=== PATIENT | female | born 1965 | race Caucasian/White ===

== ENCOUNTER 2018-11-10 05:45 | Observation (INO) | payer OTHER ==
--- NOTE | 2018-11-10 06:13 | EDPHYS ---
Physician Documentation [facility] Name: Rose Aiken Age: 52 yrs Sex: Female : 1965 Arrival Date: 11/10/2018 Time: 05:49 Bed 18 Private MD: ED Physician Tani Rodriguez HPI: 11/10 06:07 This 52 yrs old Female presents to ER via Ambulatory with complaints of Chest thomas Pain. 06:07 The patient or guardian reports chest pain that is located primarily in the substernal thomas area. Onset: 2 day(s) ago. The pain radiates to Associated signs and symptoms: The patient has no apparent associated signs or symptoms. The chest pain is described as a pressure. Modifying factors: The symptoms are alleviated by nothing. the symptoms are aggravated by deep breath, movement. Severity of pain: At its worst the pain was mild in the emergency department the pain is unchanged. The patient has not experienced similar symptoms in the past. 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 - Social history:: Smoking status: Patient/guardian denies using tobacco, Patient/guardian denies using alcohol, street drugs. - Ebola Screening: : Patient negative for fever greater than or equal to 101.5 degrees Fahrenheit, and additional compatible Ebola Virus Disease symptoms Patient denies exposure to infectious person Patient denies travel to an Ebola-affected area in the 21 days before illness onset. - Family history:: not pertinent. ROS: 06:07 Constitutional: Negative for fever, chills, and weight loss, Eyes: Negative for injury, thomas pain, redness, and discharge, ENT: Negative for injury, pain, and discharge, Neck: Negative for injury, pain, and swelling, Respiratory: Negative for shortness of breath, cough, wheezing, and pleuritic chest pain, Abdomen/GI: Negative for abdominal pain, nausea, vomiting, diarrhea, and constipation, Back: Negative for injury and pain, : Negative for injury, bleeding, discharge, and swelling, MS/Extremity: Negative for injury and deformity, Skin: Negative for injury, rash, and discoloration, Neuro: Negative for headache, weakness, numbness, tingling, and seizure, Psych: Negative for depression, anxiety, suicide ideation, homicidal ideation, and hallucinations, Allergy/Immunology: Negative for hives, rash, and allergies, Endocrine: Negative for neck swelling, polydipsia, polyuria, polyphagia, and marked weight changes, Hematologic/Lymphatic: Negative for swollen nodes, abnormal bleeding, and unusual bruising. 06:07 Cardiovascular: Positive for chest pain, of the back and chest. Exam: 06:07 Constitutional: This is a well developed, well nourished patient who is awake, alert, thomas and in no acute distress. Head/Face: Normocephalic, atraumatic. Eyes: Pupils equal round and reactive to light, extra-ocular motions intact. Lids and lashes normal. Conjunctiva and sclera are non-icteric and not injected. Cornea within normal limits. Periorbital areas with no swelling, redness, or edema. ENT: Nares patent. No nasal discharge, no septal abnormalities noted. Tympanic membranes are normal and external auditory canals are clear. Oropharynx with no redness, swelling, or masses, exudates, or evidence of obstruction, uvula midline. Mucous membranes moist. Neck: Trachea midline, no thyromegaly or masses palpated, and no cervical lymphadenopathy. Supple, full range of motion without nuchal rigidity, or vertebral point tenderness. No Meningismus. Chest/axilla: Normal chest wall appearance and motion. Nontender with no deformity. No lesions are appreciated. Cardiovascular: Regular rate and rhythm with a normal S1 and S2. No gallops, murmurs, or rubs. Normal PMI, no JVD. No pulse deficits. Respiratory: Lungs have equal breath sounds bilaterally, clear to auscultation and percussion. No rales, rhonchi or wheezes noted. No increased work of breathing, no retractions or nasal flaring. Abdomen/GI: Soft, non-tender, with normal bowel sounds. No distension or tympany. No guarding or rebound. No evidence of tenderness throughout. Back: No spinal tenderness. No costovertebral tenderness. Full range of motion. Skin: Warm, dry with normal turgor. Normal color with no rashes, no lesions, and no evidence of cellulitis. MS/ Extremity: Pulses equal, no cyanosis. Neurovascular intact. Full, normal range of motion. Neuro: Awake and alert, GCS 15, oriented to person, place, time, and situation. Cranial nerves II-XII grossly intact. Motor strength 5/5 in all extremities. Sensory grossly intact. Cerebellar exam normal. Normal gait. Psych: Awake, alert, with orientation to person, place and time. Behavior, mood, and affect are within normal limits. Vital Signs: 05:55 BP 149 / 99; Pulse 72; Resp 18; Temp 97.8; Pulse Ox 97% ; Weight 104.33 kg; Height 5 rr5 ft. 7 in. (170.18 cm); Pain 6/10; 06:15 BP 141 / 71; Pulse 69; Resp 17; Pulse Ox 98% on R/A; rr5 06:57 BP 129 / 61 (auto/); Pulse 77 LA; Resp 13 S; Pulse Ox 100% on R/A; rr5 07:06 BP 134 / 64; Pulse 81; Resp 17; Pulse Ox 99% on R/A; Pain 3/10; em 05:55 Body Mass Index 36.02 (104.33 kg, 170.18 cm) rr5 Alexander Coma Score: 05:55 Eye Response: spontaneous(4). Verbal Response: oriented(5). Motor Response: obeys rr5 commands(6). Total: 15. MDM: 05:50 Patient medically screened. [facility] 06:11 Data reviewed: vital signs, nurses notes, lab test result(s), EKG, radiologic studies, [facility] CT scan, plain films. 11/10 05:56 Order name: Basic Metabolic Panel; Complete Time: 08:30 mt 11/10 05:56 Order name: CBC with Diff; Complete Time: 06:46 mt 11/10 05:56 Order name: LFT's; Complete Time: 08:30 mt 11/10 05:56 Order name: Magnesium; Complete Time: 08:30 mt 11/10 05:56 Order name: NT PRO-BNP; Complete Time: 08:30 mt 11/10 05:56 Order name: PT-INR; Complete Time: 06:46 mt 11/10 05:56 Order name: Troponin (emerg Dept Use Only); Complete Time: 08:30 mt 11/10 06:07 Order name: Lipase thomas 11/10 07:10 Order name: Basic Metabolic Panel EDIA 11/10 07:10 Order name: Basic Metabolic Panel EDIA 11/10 07:10 Order name: Lipid Profile EDIA 11/10 07:10 Order name: Lipid Profile EDMS 11/10 07:11 Order name: CBC with Automated Diff EDMS 11/10 07:11 Order name: CBC with Automated Diff EDMS 11/10 05:56 Order name: XRAY Chest (1 view); Complete Time: 08:30 mt 11/10 05:56 Order name: EKG; Complete Time: 05:57 mt 11/10 06:07 Order name: CT Aorta for Dissection; Complete Time: 08:30 [facility] 11/10 07:11 Order name: Echo with Doppler EDIA 11/10 07:11 Order name: Troponin I EDIA 11/10 07:11 Order name: Troponin I; Complete Time: 08:30 EDIA 11/10 07:11 Order name: Troponin I EDIA 11/10 07:57 Order name: Lipid Profile; Complete Time: 08:30 EDMS 11/10 07:57 Order name: Lipase; Complete Time: 08:30 EDIA 11/10 05:56 Order name: Cardiac monitoring; Complete Time: 05:56 or 11/10 05:56 Order name: EKG - Nurse/Tech; Complete Time: 05:56 mt 11/10 05:56 Order name: IV Saline Lock; Complete Time: 06:01 or 11/10 05:56 Order name: Labs collected and sent; Complete Time: 06:01 or 11/10 05:56 Order name: O2 Per Protocol; Complete Time: 05:56 mt 11/10 05:56 Order name: O2 Sat Monitoring; Complete Time: 05:56 or 11/10 07:11 Order name: CONS Physician Consult EDIA 11/10 07:11 Order name: Heart Healthy EDIA 11/10 07:11 Order name: EKG Electrocardiogram EDIA 11/10 07:11 Order name: EKG Electrocardiogram EDMS Administered Medications: 06:18 Drug: Pepcid 20 mg Route: IVP; Site: right antecubital; rr5 07:04 Follow up: Response: No adverse reaction rr5 06:20 Drug: Lopressor (metoprolol TARTRATE) 50 mg Route: PO; rr5 07:03 Follow up: Response: No adverse reaction rr5 06:22 Drug: Aspirin Chewable Tablet 324 mg Route: PO; rr5 07:03 Follow up: Response: No adverse reaction rr5 06:23 Drug: Lovenox 100 mg Route: Sub-Q; Site: right lower abdomen; rr5 07:03 Follow up: Response: No adverse reaction rr5 06:30 Drug: Zofran 4 mg Route: IVP; Site: right antecubital; rr5 07:03 Follow up: Response: No adverse reaction rr5 06:32 Drug: morphine 2 mg Route: IVP; Site: right antecubital; rr5 07:03 Follow up: Response: No adverse reaction rr5 11:27 Not Given (pain resolved): morphine 2 mg IVP once em Disposition: 11/10/18 06:13 Hospitalization ordered by Richie Valiente for Observation. Preliminary diagnosis are Chest pain, unspecified, Essential (primary) hypertension. - Bed requested for Telemetry/MedSurg (observation). - Status is Observation. em - Condition is Fair. - Problem is new. - Symptoms have improved. UTI on Admission? No Signatures: Dispatcher [employer] EDGia Gomes RN RN Tani Arias MD MD cha Munoz, Edgar, BUSINESS DIRECTOR BUSINESS DIRECTOR em Tani Restrepo PA PA [facility] Jeffery Rankin, RN RN rr5 Corrections: (The following items were deleted from the chart) 09:38 06:13 Hospitalization Ordered by Richie Valiente MD for Observation. Preliminary eb diagnosis is Chest pain, unspecified; Essential (primary) hypertension. Bed requested for Telemetry/MedSurg (observation). Status is Observation. Condition is Fair. Problem is new. Symptoms have improved. UTI on Admission? No. thomas 11:00 09:38 11/10/2018 06:13 Hospitalization Ordered by Richie Valiente MD for Observation. dw Preliminary diagnosis is Chest pain, unspecified; Essential (primary) hypertension. Bed requested for [facility] ER HOLD. Status is Observation. Condition is Fair. Problem is new. Symptoms have improved. UTI on Admission? No. eb 11:28 11:00 11/10/2018 06:13 Hospitalization Ordered by Richie Valiente MD for Observation. em Preliminary diagnosis is Chest pain, unspecified; Essential (primary) hypertension. Bed requested for Telemetry/MedSurg (observation). Status is Observation. Condition is Fair. Problem is new. Symptoms have improved. UTI on Admission? No. dw
--- NOTE | 2018-11-10 06:13 | ER ---
Nurse's Notes [facility] Name: Rose Aiken Age: 52 yrs Sex: Female : 1965 Arrival Date: 11/10/2018 Time: 05:49 Bed 18 Private MD: Diagnosis: Chest pain, unspecified;Essential (primary) hypertension Presentation: 11/10 05:55 Presenting complaint: Patient states: suddenly woke up at 0300H today having tearing rr5 chest pain at the center of my chest pain score of 6/10 radiating to the shoulder blade. nauseated, no cough noted. 05:55 Transition of care: patient was not received from another setting of care. Onset of rr5 symptoms was November 10, 2018 at 03:00. Risk Assessment: Do you want to hurt yourself or someone else? Patient reports no desire to harm self or others. Initial Sepsis Screen: Does the patient meet any 2 criteria? No. Patient's initial sepsis screen is negative. Does the patient have a suspected source of infection? No. Patient's initial sepsis screen is negative. Care prior to arrival: None. 05:55 Method Of Arrival: Ambulatory rr5 05:55 Acuity: JADON 3 rr5 Triage Assessment: 05:55 General: Appears in no apparent distress. uncomfortable, Behavior is calm, cooperative, rr5 appropriate for age. Pain: Complains of pain in chest Pain radiates to shoulder blade Pain currently is 6 out of 10 on a pain scale. Quality of pain is described as tearing Pain began suddenly, Is continuous. 05:55 EENT: No signs and/or symptoms were reported regarding the EENT system. Neuro: Level of rr5 Consciousness is awake, alert, obeys commands, Oriented to person, place, time, situation, Appropriate for age. Cardiovascular: Capillary refill < 3 seconds Patient's skin is warm and dry. Respiratory: Airway is patent Respiratory effort is even, unlabored, Respiratory pattern is regular, symmetrical. GI: Reports nausea. : No signs and/or symptoms were reported regarding the genitourinary system. Derm: Skin is intact, Skin temperature is warm. Musculoskeletal: Capillary refill < 3 seconds, Range of motion: intact in all extremities. 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 - Social history:: Smoking status: Patient/guardian denies using tobacco, Patient/guardian denies using alcohol, street drugs. - Ebola Screening: : Patient negative for fever greater than or equal to 101.5 degrees Fahrenheit, and additional compatible Ebola Virus Disease symptoms Patient denies exposure to infectious person Patient denies travel to an Ebola-affected area in the 21 days before illness onset. - Family history:: not pertinent. Screenin:10 Abuse screen: Denies threats or abuse. Denies injuries from another. Nutritional rr5 screening: No deficits noted. Tuberculosis screening: No symptoms or risk factors identified. Fall Risk IV access (20 points). Total Acevedo Fall Scale indicates No Risk (0-24 pts). Assessment: 05:55 General: see triage assessment. rr5 05:55 Pain: Complains of pain in chest Pain radiates to shoulder blade Pain currently is 6 rr5 out of 10 on a pain scale. Quality of pain is described as tearing Pain began suddenly, Is continuous. 06:55 Reassessment: Patient appears in no apparent distress at this time. Patient and/or rr5 family updated on plan of care and expected duration. Pain level reassessed. dr. jasso at bedside examining the patient for admission. Patient states symptoms have improved. 07:06 Reassessment: Patient appears in no apparent distress at this time. Patient and/or em family updated on plan of care and expected duration. Pain level reassessed. Patient is alert, oriented x 3, equal unlabored respirations, skin warm/dry/pink. General: Appears in no apparent distress. comfortable, Behavior is calm, cooperative. Neuro: Level of Consciousness is awake, alert, obeys commands, Oriented to person, place, time, situation. Cardiovascular: Reports chest pain, Patient's skin is warm and dry. Rhythm is sinus rhythm. Respiratory: Airway is patent Respiratory effort is even, unlabored, Respiratory pattern is regular, symmetrical, Breath sounds are clear bilaterally. GI: Reports nausea. Derm: Skin is intact, is healthy with good turgor, Skin is pink, warm \T\ dry. 08:00 Reassessment: Patient appears in no apparent distress at this time. Patient and/or em family updated on plan of care and expected duration. Pain level reassessed. Patient is alert, oriented x 3, equal unlabored respirations, skin warm/dry/pink. Patient states feeling better. Patient states symptoms have improved. 09:30 Reassessment: see [facility] charting. em Vital Signs: 05:55 BP 149 / 99; Pulse 72; Resp 18; Temp 97.8; Pulse Ox 97% ; Weight 104.33 kg; Height 5 rr5 ft. 7 in. (170.18 cm); Pain 6/10; 06:15 BP 141 / 71; Pulse 69; Resp 17; Pulse Ox 98% on R/A; rr5 06:57 BP 129 / 61 (auto/); Pulse 77 LA; Resp 13 S; Pulse Ox 100% on R/A; rr5 07:06 BP 134 / 64; Pulse 81; Resp 17; Pulse Ox 99% on R/A; Pain 3/10; em 05:55 Body Mass Index 36.02 (104.33 kg, 170.18 cm) rr5 [place] Coma Score: 05:55 Eye Response: spontaneous(4). Verbal Response: oriented(5). Motor Response: obeys rr5 commands(6). Total: 15. ED Course: 05:49 Patient arrived in ED. aa1 05:50 Tani Rodriguez MD is Attending Physician. thomas 05:55 Arm band placed on. rr5 05:56 Jeffery Rankin RN is Primary Nurse. rr5 06:00 Triage completed. rr5 06:00 EKG done, by ED staff, reviewed by Tani Rodriguez MD. Inserted saline lock: 20 gauge in mt right antecubital area, using aseptic technique. Blood collected. by Mark inspector canned food reconditioning. 06:00 Patient maintains SpO2 saturation greater than 95% on room air. rr5 06:00 EKG completed in triage. Results shown to . rr5 06:00 security monitor on. Pulse ox on. NIBP on. rr5 06:00 Patient has correct armband on for positive identification. Placed in gown. Bed in low rr5 position. Call light in reach. Side rails up X2. 06:12 Richie Jasso MD is Hospitalizing Provider. thomas 06:20 X-ray completed. Portable x-ray completed in exam room. Patient tolerated procedure kw well. 06:21 XRAY Chest (1 view) In Process Unspecified. EDMS 06:[address] rr5 06:40 No apparent distress. Resting quietly. rr5 06:55 Patient moved back from CT. rr5 06:58 CT Aorta for Dissection In Process Unspecified. EDMS 06:58 CT completed. Patient tolerated procedure well. 07:59 Repeat lab(s) drawn. by va, sent to lab. em 11:27 No provider procedures requiring assistance completed. Patient admitted, IV remains in em place. Administered Medications: 06:18 Drug: Pepcid 20 mg Route: IVP; Site: right antecubital; rr5 07:04 Follow up: Response: No adverse reaction rr5 06:20 Drug: Lopressor (metoprolol TARTRATE) 50 mg Route: PO; rr5 07:03 Follow up: Response: No adverse reaction rr5 06:22 Drug: Aspirin Chewable Tablet 324 mg Route: PO; rr5 07:03 Follow up: Response: No adverse reaction rr5 06:23 Drug: Lovenox 100 mg Route: Sub-Q; Site: right lower abdomen; rr5 07:03 Follow up: Response: No adverse reaction rr5 06:30 Drug: Zofran 4 mg Route: IVP; Site: right antecubital; rr5 07:03 Follow up: Response: No adverse reaction rr5 06:32 Drug: morphine 2 mg Route: IVP; Site: right antecubital; rr5 07:03 Follow up: Response: No adverse reaction rr5 11:27 Not Given (pain resolved): morphine 2 mg IVP once em Outcome: 06:13 Decision to Hospitalize by Provider. thomas 11:27 Admitted to Tele accompanied by tech, family with patient, via wheelchair, room 207, em with chart, Report called to ANITA Martínez 11:27 Condition: good 11:27 Instructed on the need for admit, Demonstrated understanding of instructions. 11:28 Patient left the ED. em Signatures: Dispatcher [employer] Kristi Najera RN RN aa1 Tani Rodriguez MD MD cha Hagler, Ervin Kane, Huy, BURLAP ROLL COVERER BURLAP ROLL COVERER Sosa Miller Moriah mt Roque, Raymond, RN RN rr5
[2018-11-10 06:18] LABS: Absolute Lymphocytes (CBC) 2.3 K/uL (0.7-4.9); Absolute Monocytes 0.6 K/uL (0.1-1.3); Absolute Neutrophil 5.2 K/uL (1.8-8.0); Hematocrit 43.2 % (36.0-45.0); Lymphocytes % 26.6 % (15.3-44.8); MPV 8.4 fL (7.6-11.3); Monocytes % 7.1 % (3.3-12.3); RBC Red Blood Cell Count 5.05 M/uL (3.86-4.86)
[2018-11-10 06:19] LABS: Protime INR 0.98
[2018-11-10] MEDS ORDERED: ASPIRIN 81 MG CHEWABLE TABLET ONE (06:22)
[2018-11-10] MEDS ORDERED: ENOXAPARIN 100 MG/ML SYR SQ ONE (06:23)
[2018-11-10] MEDS ORDERED: FAMOTIDINE 20 MG/2 ML VIAL IV ONE (06:23)
[2018-11-10] MEDS ORDERED: METOPROLOL TAR 50 MG TAB ONE (06:23)
[2018-11-10 06:34] LABS: ALT/SGPT 36 U/L (12-78); AST/SGOT 21 U/L (15-37); Albumin 3.7 g/dL (3.4-5.0); Alkaline Phosphatase 125 U/L (45-117); BUN Blood Urea Nitrogen 14 mg/dL (7-18); Bicarbonate 28 mmol/L (21-32); Bilirubin Direct 0.1 mg/dL (0-0.2); Bilirubin Total 0.3 mg/dL (0.2-1.0); Glucose Level 135 mg/dL (74-106); Magnesium 2.4 mg/dL (1.8-2.4); NT PRO-BNP 18 pg/mL (<125); Potassium 3.7 mmol/L (3.5-5.1); Protein, Total 7.6 g/dL (6.4-8.2); Sodium Level 138 mmol/L (136-145); Troponin (Emerg Dept Use Only) < 0.02 ng/mL (0.0-0.045)
[2018-11-10] MEDS ORDERED: ONDANSETRON 4 MG/2 ML VIAL ONE (06:36)
[2018-11-10] MEDS ORDERED: MORPHINE 4 MG/ML SYR ONE (06:37)
[2018-11-10] MEDS ORDERED: ACETAMINOPHEN 500 MG TAB PO PRN (07:07)
--- NOTE | 2018-11-10 07:15 | P.HP ---
Certification for Inpatient Patient admitted to: Observation With expected LOS: <2 Midnights Patient will require the following post-hospital care: None Practitioner: I am a practitioner with admitting privileges, knowledge of patient current condition, hospital course, and medical plan of care. Services: Services provided to patient in accordance with Admission requirements found in Title 42 Section 412.3 of the Code of Federal Regulations Patient History Date of Service: 11/10/18 Reason for admission: Chest pain rule out acute coronary syndrome History of Present Illness: Patient is a 52-year-old female came to the hospital with chest discomfort. Pain was mainly in the sternal region. The pain woke her up from her sleep. The pain radiated to her right side. She did not have any diaphoresis or shortness of breath, but she was nauseated. She has never had any chest pain like this before. She does have a gastroesophageal reflux disease, but the pain was not similar to the feeling she got from her reflux. Patient has a history of hypertension, and also has a family history of heart disease in her father in his 70s. No siblings with heart disease. She does not smoke. She clinically appears to be feeling better. Her initial EKG and troponins did not reveal any significant abnormality. ER physician has ordered a CT dissection protocol which is pending. Patient will be admitted to the hospital for further evaluation. Home medications list reviewed: Yes - Past Medical/Surgical History -: Hypertension Past Surgical History: Patient denies surgical history - Family History Father Family History: Reviewed- Non-Contributory - Social History Smoking Status: Never smoker Alcohol use: No CD- Drugs: No Review of Systems 10-point ROS is otherwise unremarkable Physical Examination - Vital Signs Temperature: 98 F Blood Pressure: 140/70 Pulse: 80 Respirations: 16 Pulse Ox (%): 98 - Physical Exam General: Alert, In no apparent distress, Oriented x3 HEENT: Atraumatic, PERRLA, Mucous membr. moist/pink, EOMI, Sclerae nonicteric Neck: Supple, 2+ carotid pulse no bruit, No LAD, Without JVD or thyroid abnormality Respiratory: Clear to auscultation bilaterally, Normal air movement Cardiovascular: Regular rate/rhythm, Normal S1 S2, No murmurs Gastrointestinal: Normal bowel sounds, Soft and benign, Non-distended, No tenderness Musculoskeletal: No clubbing, No swelling, No tenderness Integumentary: No rashes Neurological: Normal gait, Normal speech, Normal strength at 5/5 x4 extr, Normal tone, Sensation intact, Cranial nerves 3-12 intact, Normal affect Lymphatics: No axilla or inguinal lymphadenopathy - Studies Laboratory Data (last 24 hrs) 11/10/18 06:03: PT 11.6, INR 0.98 11/10/18 06:03: WBC 8.5, Hgb 14.8, Hct 43.2, Plt Count 358 11/10/18 06:03: Sodium 138, Potassium 3.7, BUN 14, Creatinine 1.00, Glucose 135 H, Magnesium 2.4, Total Bilirubin 0.3, AST 21, ALT 36, Alkaline Phosphatase 125 H Assessment & Plan - Problems (Diagnosis) (1) Chest pain, rule out acute myocardial infarction Current Visit: Yes Status: Acute (2) Hypertension Current Visit: Yes Status: Acute Qualifiers: Hypertension type: essential hypertension Qualified Code(s): I10 - Essential (primary) hypertension (3) Nausea Current Visit: Yes Status: Acute - Plan 1. Serial troponins and EKG 2. Cardiology consultation 3. Echocardiogram and stress test 4. Anti-platelet therapy, anti coagulation, beta-srinivas, statin, and O2 as needed 5. IV morphine for pain 6. Nitro p.r.n. 7. GI/DVT prophylaxis Discharge Plan: Home Plan to discharge in: 24 Hours - Advance Directives Does patient have a Living Will: No Does patient have a Durable POA for Healthcare: No - Code Status/Comfort Care Code Status Assessed: Yes Code Status: Full Code Critical Care: No Time Spent Managing PTS Care (In Minutes): 50
[2018-11-10 07:57] LABS: HDL Cholesterol 53 mg/dL (40-60); LDL Cholesterol, Calculated 118 (<130); Lipase 153 U/L (73-393)
--- NOTE | 2018-11-10 08:16 | RAD REPORT ---
EXAM DESCRIPTION: RAD - Chest Single View - 11/10/2018 6:20 am CLINICAL HISTORY: CHEST PAIN Chest pain. COMPARISON: No comparisons FINDINGS: Portable technique limits examination quality. The lungs are grossly clear. The heart is normal in size. No displaced fractures. IMPRESSION: No acute intrathoracic process suspected.
--- NOTE | 2018-11-10 08:16 | RAD REPORT ---
EXAM DESCRIPTION: CT - Angio Aorta For Dissection - 11/10/2018 6:58 am CLINICAL HISTORY: Chest pain radiating to the back. CHEST PAIN COMPARISON: No comparisons TECHNIQUE: CT angiography of the aorta was performed with MIPs. All CT scans are performed using dose optimization technique as appropriate and may include automated exposure control or mA/KV adjustment according to patient size. FINDINGS: A left aortic arch is present with normal branching pattern of the great vessels.No acute aortic finding is seen such as aneurysm, penetrating ulcer or dissection. Distal to the takeoff of th e left subclavian artery there is a subtle narrowing of the proximal descending thoracic aorta sugges ting a minimal coarctation. The celiac axis, SMA, ASTRID and renal arteries are widely patent. No evidence of pulmonary embolism. The lungs are clear. Diffuse fatty liver infiltration is seen. Rounded low-density liver lesion measuring 3.6 cm in the an terior right lobe is likely benign cyst.No aggressive liver mass or intrahepatic biliary dilatation.T he spleen, pancreas, adrenal glands and kidneys are within normal limits for arterial phase imaging. No bowel obstruction, free fluid or abscess.Sigmoid diverticulosis is present without diverticulitis. No pathologic enlarged lymphadenopathy identified.Normal appendix. No fracture or worrisome bone lesion seen.Prominent lumbar degenerative change at L2-3. 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 Advanced fatty liver.
[2018-11-10] MEDS ORDERED: METOPROLOL TAR 25 MG TAB PO SCH (09:00)
[2018-11-10] MEDS ORDERED: ENOXAPARIN 40 MG/0.4 ML SQ SCH (09:00)
[2018-11-10] MEDS ORDERED: ASPIRIN EC 81 MG TAB PO SCH (09:00)
--- NOTE | 2018-11-10 12:53 | ECHO ---
HEIGHT: 5 ft 7 in WEIGHT: 229 lb 0 oz DATE OF STUDY: REFER DR: Richie Valiente MD 2-DIMENSIONAL: YES M.MODE: YES DOPPLER: YES COLOR FLOW: YES TDS: PORTABLE: DEFINITY: BUBBLE STUDY: DIAGNOSIS: CHEST PAIN/ RULE OUT ACUTE CORNARY SYNDROME CARDIAC HISTORY: CATHERIZATION: NO SURGERY: NO PROSTHETIC VALVE: NO PACEMAKER: NO MEASUREMENTS (cm) DIASTOLIC (NORMALS) SYSTOLIC (NORMALS) IVSd 1.0 (0.6-1.2) LA Diam 3.8 (1.9-4.0) LVEF 74% LVIDd 3.7 (3.5-5.7) LVIDs 2.1 (2.0-3.5) %FS 42% LVPWd 0.9 (0.6-1.2) Ao Diam 2.7 (2.0-3.7) 2 DIMENSIONAL ASSESSMENT: RIGHT ATRIUM: NORMAL LEFT ATRIUM: NORMAL RIGHT VENTRICLE: NORMAL LEFT VENTRICLE: NORMAL TRICUSPID VALVE: NORMAL MITRAL VALVE: NORMAL PULMONIC VALVE: NORMAL AORTIC VALVE: NORMAL PERICARDIAL EFFUSION: NONE AORTIC ROOT: NORMAL LEFT VENTRICULAR WALL MOTION: NORMAL DOPPLER/COLOR FLOW: NORMAL COMMENTS: NORMAL 2-DIMENSIONAL ECHOCARDIOGRAM WITH DOPPLER. MILD TRICUSPID REGURGITATION. NO WALL MOTION ABNORMALITY. TECHNOLOGIST: GRADY COBB
--- NOTE | 2018-11-11 04:01 | CON ---
Date of Consultation: 11/10/[address] patient admitted to Dr. Valiente's service on 11/10/2018. I saw the patient on 11/10/2018. Reason For Consultation: Chest pain. History Of Present Illness: Ms. Aiken is a 52-year-old white woman without any significant past c ardiac history. She has history of hypertension, gastroesophageal reflux disease. They typically li ve in [place]. Her and her are working here locally. She woke up and turned to her side an d developed this sharp, stabbing, which she described as ripping, tearing chest pain in the left ante rior chest that persisted for approximately 9 hours. She came to the emergency room for further eval uation and treatment. Denied PND, orthopnea, pedal edema, palpitations, or syncope. Denied any feve r or chills or cough. Review of Systems: Negative. Social History: Negative for tobacco. Family History: Negative for heart disease. Medications: Include Bystolic, hydrochlorothiazide, and omeprazole. Allergies: SHE IS ALLERGIC TO PROCHLORPERAZINE. Physical Examination: Vital Signs: Stable. She was afebrile. HEENT: Negative. Neck: Supple with no bruit. Chest: Clear to auscultation and percussion. Cardiac: Revealed a regular rhythm and rate without any murmurs, gallops, or rubs. Abdomen: Benign. Extremities: Revealed no clubbing, cyanosis, or edema. Diagnostic Data: All within normal limits. EKG was normal. Chest x-ray was normal. CPKs, MBs, and troponin were negative. Impression And Plan: 1.Atypical chest pain, most likely musculoskeletal. The patient had severe ripping chest pain for 9 hours, but yet had negative CTA, negative EKG, negative chest x-ray. An echocardiogram that was don e also was normal. She has normal enzymes as well. I think Ms. Aiken can go home whenever it is okay with Dr. Kelly, and she will follow up with her primary care physician in [place]. 2.History of gastroesophageal reflux disease as well as history of esophageal dilatation recently. 3.Hypertension, fairly well controlled. ANDRIY/AMELIA Voice ID: [id number] Report ID: [id number]
--- NOTE | 2018-11-11 07:02 | EKG ---
Test Date: 2018-11-10 Test Time: 05:51:57 Stitch Separator: AG3 MEASUREMENT RESULTS: Intervals: Rate: 74 NE: 150 QRSD: 86 QT: 378 QTc: 419 Energy: P: NE: 150 QRS: 111 T: 137 INTERPRETIVE STATEMENTS: Normal sinus rhythm Lateral infarct, age undetermined Abnormal ECG No previous ECG available for comparison Electronically Signed On 11-11-18 06:53:33 CUSTOMER CARE COORDINATOR by Claudio Machado
[2018-11-11] MEDS ORDERED: ENOXAPARIN 40 MG/0.4 ML SQ SCH (09:00)
[2018-11-11] MEDS ORDERED: ASPIRIN EC 81 MG TAB PO SCH (09:00)
== END 2018-11-10 16:10 | disposition home or self-care (01) ==
LOC: ER 05:45 → ERHOLD 07:07 → 2ND 11:33
PROVIDERS: ADMIT Hospitalist; ATTEND Hospitalist
DX: R07.9 Chest pain, unspecified (principal); R11.0 Nausea; I10 Essential (primary) hypertension; K21.9 Gastro-esophageal reflux disease without esophagitis
CPT/HCPCS: 36415; 71045; 71275; 74175; 80048; 80061; 80076; 83690; 83735; 83880; 84484; 85025; 85610; 93005; 93306; 96372; 96374; 96375; 99285; G0378; J1650; J2405; Q9967